=== PATIENT | male | born 1945 | race Caucasian/White ===

== ENCOUNTER → 2016-06-13 05:44 | Day surgery (SDC) | payer MEDICARE, OTHER ==
[2013-01-24 06:56] VITALS: BMI 26.6
[2016-06-09 11:43] LABS: HEMATOCRIT 42.5 % (42.0-54.0); HEMOGLOBIN 14.4 g/dL (13.5-17.5); MCH 30.8 pg (26.0-34.0); MCHC 33.9 g/dL (31.0-37.0); MEAN PLATELET VOLUME 10.5 fL (7.4-10.4); RBC 4.67 10x6/uL (4.20-6.10); RDW 14.4 % (11.5-14.5); WBC 5.9 10x3/uL (4.8-10.8)
[~2016-06-13 05:44] MED LIST: ADVAIR 100/501 DISK INH; ALLEGRA 60 MG T60 MG PO; ASPIRIN EC81 M1 PO; CITRACAL + D E1 EACH PO; DIOVAN160 MG PO; FISH OIL 1,0001 CA1 PO; FLOMAX0.4 MG PO; LIPITOR20 MG PO; MOBIC7.5 MG PO; MULTI-DAY VITAM1 TAB PO; NEXIUM40 MG PO; NORVASC5 MG PO; NUCYNTA50 MG PO
== END | disposition home or self-care (01) ==
LOC: D.OPS 05:44 → D.PAN 08:00 → D.OPS 08:30 → D.PAN 09:25
PROVIDERS: Anesthesiology
DX: M25.811 Other specified joint disorders, right shoulder (principal); M25.562 Pain in left knee; M25.511 Pain in right shoulder; M25.512 Pain in left shoulder; S83.262A Peripheral tear of lateral meniscus, current injury, left knee, initial encounter; M70.62 Trochanteric bursitis, left hip; Z01.810 Encounter for preprocedural cardiovascular examination; Z01.811 Encounter for preprocedural respiratory examination; Z01.812 Encounter for preprocedural laboratory examination; Z53.9 Procedure and treatment not carried out, unspecified reason

== ENCOUNTER 2016-06-27 04:50 | Day surgery (SDC) | payer MEDICARE, OTHER ==
[2016-06-26 13:02] LABS: HEMATOCRIT 41.7 % (42.0-54.0); HEMOGLOBIN 14.2 g/dL (13.5-17.5); MCH 30.7 pg (26.0-34.0); MCHC 34.1 g/dL (31.0-37.0); MCV 90.1 fL (80.0-100.0); MEAN PLATELET VOLUME 10.3 fL (7.4-10.4); RBC 4.63 10x6/uL (4.20-6.10); RDW 14.3 % (11.5-14.5); WBC 6.6 10x3/uL (4.8-10.8)
[~2016-06-27] VITALS: Ht 177.8 cm; Wt 86.2 kg
[~2016-06-27 04:50] MED LIST changes: -NUCYNTA50 MG PO
[2016-06-27 06:07] VITALS: BP 130/76; Ht 177.8 cm; Wt 86.2 kg
[2016-06-27] MEDS ORDERED: NUCYNTA50 MG PO (07:43)
--- NOTE | 2016-06-27 09:40 | NUR ---
0900 IV DC WITH CATHER TIP INTACT
--- NOTE | 2016-07-06 08:25 | OP ---
PATIENT NAME: TAVIA GIL MEDICAL RECORD: [id number] :49 LOCATION:[facility] ADMISSION DATE: SURGEON: ELY ALCANTARA MD DATE OF OPERATION: 06/27/2016 PREOPERATIVE DIAGNOSIS: Left knee lateral meniscus tear. 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 PROCEDURE PERFORMED: Partial lateral meniscectomy and chondroplasty. SURGEON: Hemal Alcantara MD ANESTHESIA: General. CONDITION: He tolerated the procedure well, was transferred to recovery room in stable condition at termination of the procedure. INDICATIONS: This is a pleasant 71-year-old gentleman that has had increasing pain in his left knee. We discussed the options. We discussed the possibility that arthroscopy would not help him. He did not want to proceed with the knee replacement at this juncture. We therefore discussed the options. He wanted to go ahead and proceed with a knee arthroscopy. We discussed the risks, benefits, and alternatives of this procedure. He understood and wished to proceed. OPERATIVE REPORT: The patient was taken to the operating room, placed in a supine position. General anesthesia was obtained. His left knee was confirmed to be the correct knee. It was then prepped and draped in the standard fashion. Portal sites were marked and injected with 0.25% Marcaine with epinephrine. I then proceeded to established an anterior lateral portal for the scope and inflow, superomedially for the outflow. The scope was placed, verifying position of the outflow. The patellofemoral joint was checked, but there were no significant lesions. There was some mild grade I-II type chondromalacia on the patellofemoral joint. Dropping down the medial gutter into the medial joint line, the medial joint overall looked very good. There were no significant lesions noted. The cartilage cushion looked good. The medial femoral condyle and medial tibial plateau overall had a very good appearance to them. I did establish an anterior medial portal under direct visualization at this juncture. The service probe and checked, I did not find anything further on the medial side. Moving to the notch, the ACL and PCL were notably intact. 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 This involved the fairly large area and some changes on the lateral tibial plateau. The tear as well as the chondromalacia was debrided with a shaver and a biter. Then, we are back and made sure I had collected the fragments that are formed in the pouch. I then brought the case to a close. He was injected with of Duramorph and Marcaine plain. He tolerated this well, was awakened and transferred to the recovery room in stable condition, having tolerated procedure well. Again, post-total knee arthroscopy therapy and we will proceed from this juncture. TRANSINT:[id number] Voice Confirmation ID: [id number] DOCUMENT ID: [id number] OPERATIVE REPORT [id number] TAVIA GIL, ELY ESCOBEDO MD at 0825 CC: [id number] DICTATION DATE: 06/27/16 0741 WATER CONTROL SUPERVISOR: 06/27/16 0819 [facility] 06/27/16 [id number] [place] [address]
== END 2016-06-27 09:15 | disposition home or self-care (01) ==
LOC: D.OPS 04:50 → D.PAN 10:45 → D.OPS 10:45
PROVIDERS: Anesthesiology
DX: S83.282A Other tear of lateral meniscus, current injury, left knee, initial encounter (principal); M94.262 Chondromalacia, left knee

== ENCOUNTER → 2016-09-19 10:34 | Outpatient (CLI) | payer MEDICARE, OTHER ==
[2016-06-27 06:07] VITALS: BMI 27.3
[~2016-09-19 10:34] MED LIST changes: +NUCYNTA50 MG PO
== END | disposition home or self-care (01) ==
LOC: D.MRI 10:34
DX: M47.27 Other spondylosis with radiculopathy, lumbosacral region (principal)

== ENCOUNTER → 2018-03-21 09:34 | Outpatient (CLI) | payer MEDICARE, OTHER ==
[2016-06-27 06:07] VITALS: BMI 27.3
== END | disposition home or self-care (01) ==
LOC: D.MRI 09:34
DX: M25.511 Pain in right shoulder (principal); M54.5 Low back pain

== ENCOUNTER 2018-05-06 05:35 | Day surgery (SDC) | payer MEDICARE, OTHER ==
[2018-05-01 16:12] LABS: HEMATOCRIT 38.7 % (42.0-54.0); HEMOGLOBIN 13.1 g/dL (13.5-17.5); MCH 31.8 pg (26.0-34.0); MCHC 33.9 g/dL (31.0-37.0); MCV 93.9 fL (80.0-100.0); RBC 4.12 10x6/uL (4.20-6.10); RDW 14.1 % (11.5-14.5); WBC 6.5 10x3/uL (4.8-10.8)
[~2018-05-06] VITALS: Ht 177.8 cm; Wt 86.2 kg
--- NOTE | ~2018-05-06 | OP ---
PATIENT NAME: TAVIA GIL MEDICAL RECORD: [id number] :49 [facility]ATION[facility] AD[facility]ION DATE: SURGEON: NATALY HO MD DATE OF OPERATION: 05/06/2018 PREOPERATIVE DIAGNOSES: 1. Rotator cuff tear of the right shoulder. 2. Impingement syndrome of the right shoulder. 3. Severe biceps tendinitis of the right shoulder. POSTOPERATIVE DIAGNOSES: 1. Rotator cuff tear of the right shoulder. 2. Impingement syndrome of the right shoulder. 3. Severe biceps tendinitis of the right shoulder. PROCEDURES: 1. Arthroscopic rotator cuff repair of the right shoulder. 2. Arthroscopic distal clavicle excision done through separate incision -- 1 cm. 3. Arthroscopic biceps tenotomy. 4. Arthroscopic subacromial decompression, acromioplasty, and bursectomy. SURGEON: Nataly Ho MD ANESTHESIA: General. SCHOOL BUS DRIVER/CUSTODIAN: Tavia Boswell APN, FA INTRAOPERATIVE COMPLICATIONS: None. SUMMARY OF PATHOLOGIC FINDINGS: The patient had a full thickness rotator cuff tear anteriorly at the area of the anterior aspect of the supraspinatus junction with the subscapularis. The patient had severe biceps tendinitis with almost complete biceps tendon laceration and excoriation of the coracoacromial ligament as well as osteoarthritis of the acromioclavicular joint with inferior bone spurs. OPERATIVE SUMMARY IN DETAIL: After obtaining the appropriate preoperative orthopedic surgery consent, the patient was brought to the operating room and placed on the operating table in the supine position. After adequate general laryngeal mask was administered, the patient was placed in a right lateral decubitus position by Tavia Boswell. All setup and preparations were made. Shoulder prepped and draped in routine sterile fashion. After appropriate timeout, arthroscopy was established in the glenohumeral joint for posterior portal. Anterior portal was established in the anterior safe interval. Diagnostic arthroscopy revealed the patient to have a severe biceps tendinitis, rotator cuff tearing, and the above-mentioned signs. Transrotator cuff tear portal was created through which the biceps tenotomy was created and generalized cleanup of the glenohumeral joint was done. This was then followed by decortication of the supraspinatus tendinous footprint and generalized cleanup of the undersurface tearing of the rotator cuff. Attention was then turned to the subacromial space. While in the subacromial space, Arth[employer] tissue ablation system was utilized to denude the undersurface of the acromion of all soft tissue elements and release the coracoacromial ligament. A 5-0 barrel bur was then used to perform acromioplasty at the level of acromioclavicular joint and OPERATIVE REPORT [id number] TAVIA GIL then through an anterior arthroscopic portal, distal clavicle was excised for 1 cm using 5-0 barrel bur under direct arthroscopic visualization. Attention was then returned to the rotator cuff. Further decortication was carried out followed by placement of 2 inverted mattress sutures into the rotator cuff anchored laterally with two 5.5 SwiveLock anchors from Arthrex, which resulted in good reapproximation of the rotator cuff back to the supraspinatus tendinous footprint. Having completed this, arthroscopy portals were closed in routine interrupted fashion by Dipak Boswell. Sterile dressings were applied. The patient was awakened and taken to recovery room in stable condition. All final needle and sponge counts were correct. TRANSINT:[id number] Voice Confirmation ID: [id number] DOCUMENT ID: [id number] VIC MONREAL, NATALY DAMON at 1442 CC: [id number] DICTATION DATE: 05/06/18 0840 RELATIONS MANAGER: 05/06/18 1111 [facility] 05/06/18 [id number] [place] [address]
[~2018-05-06 05:35] MED LIST changes: +OMEPRAZOLE20 M1 PO
[2018-05-06 06:37] VITALS: BP 134/79; Ht 177.8 cm; Wt 86.2 kg
[2018-05-06] MEDS ORDERED: DILAUDID4 MG PO (08:35)
== END 2018-05-06 10:30 | disposition home or self-care (01) ==
LOC: D.OPS 05:35 → D.PAN 07:45 → D.OPS 07:50 → D.PAN 08:20 → D.OPS 09:30
PROVIDERS: Anesthesiology
DX: M75.101 Unspecified rotator cuff tear or rupture of right shoulder, not specified as traumatic (principal); I10 Essential (primary) hypertension; E78.5 Hyperlipidemia, unspecified; M75.41 Impingement syndrome of right shoulder; M75.21 Bicipital tendinitis, right shoulder

== ENCOUNTER → 2018-06-10 08:17 | Outpatient (CLI) | payer MEDICARE, OTHER ==
[2018-05-06 06:37] VITALS: BMI 27.3
[~2018-06-10 08:17] MED LIST changes: +DILAUDID4 MG PO
[2018-06-13 22:08] LABS: IMMUNOGLOBULIN E 42 IU/mL (0-100)
== END | disposition home or self-care (01) ==
LOC: D.RT 08:00
PROVIDERS: Internal Medicine Pulmonary Disease
DX: J44.9 Chronic obstructive pulmonary disease, unspecified (principal); J45.909 Unspecified asthma, uncomplicated

== ENCOUNTER → 2018-12-06 10:41 | Outpatient (CLI) | payer MEDICARE, OTHER ==
[2018-05-06 06:37] VITALS: BMI 27.3
== END | disposition home or self-care (01) ==
LOC: D.RT 10:41
PROVIDERS: ATTEND Internal Medicine Pulmonary Disease
DX: J45.991 Cough variant asthma (principal)

== ENCOUNTER → 2019-03-17 10:44 | Outpatient (CLI) | payer MEDICARE, OTHER ==
[2018-05-06 06:37] VITALS: BMI 27.3
== END | disposition home or self-care (01) ==
LOC: D.CT 10:44
PROVIDERS: ATTEND Internal Medicine Pulmonary Disease
DX: J32.9 Chronic sinusitis, unspecified (principal)

== ENCOUNTER → 2020-12-10 13:18 | Outpatient (CLI) | payer MEDICARE, OTHER ==
[2018-05-06 06:37] VITALS: BMI 27.3
== END | disposition home or self-care (01) ==
LOC: D.LABREF 13:18
PROVIDERS: ATTEND Clinical Nurse Specialist Family Health
DX: M25.551 Pain in right hip (principal)